=== PATIENT | male | born 1995 | race Two or more races ===

== ENCOUNTER 2020-06-22 03:38 | Emergency (ER) | payer MEDICAID, OTHER ==
[~2020-06-22] VITALS: Ht 188 cm; Wt 106.6 kg
--- NOTE | 2020-06-22 03:54 | NUR ---
PATIENT CAME TO THE ER BED 3 C/O LEFT SIDED ABDOMINAL PAIN RADIATING TO UPPER LEFT SHOULDER WORSENING 2xDAYS. PATIENT STATES THAT HE HAS HAD THIS PAIN CHRONICALLY, BUT UNABLE TO SEE DUE TO UNAVAILABLE INSURANCE. HE RECENTLY WAS ABLE TO OBTAIN INSURANCE AND WAS ABLE TO SEE A DOCTOR AND HAD AN ULTRASOUND ON FEBRUARY 2020 WHICH SHOWED HE HAD A LARGE SPLEEN. RECENTLY USED MARIJUANA AROUND 1000 OF YESTERDAY. PATIENT AAOX4. NO SOB. BREATHING EVENLY AND UNLABORED ON ROOM AIR. CONNECTED TO THE MONITOR. PATIENT PROVIDED URINE SAMPLE, SENT TO THE LAB.
[2020-06-22] MEDS: IV NS 0.9% 500 ML BAG IV ONE (04:00)
[2020-06-22] MEDS: ONDANSETRON HCL/PF 4 MG/2 ML VIAL IVP ONE (04:00)
[2020-06-22] MEDS ORDERED: ONDANSETRON HCL/PF 4 MG/2 ML VIAL ONE (04:05)
[2020-06-22 04:06] LABS: BILIRUBIN,URINE SMALL (NEGATIVE); COLOR,URINE YELLOW (YELLOW); LEUKOCYTE ESTERASE ,URINE Negative (NEGATIVE); NITRITE, URINE Negative (NEGATIVE); PH,URINE 6.5 (5.0-8.0); PROTEIN,URINE 30 mg/dl (NEGATIVE); UGLUCOSE Negative (NEGATIVE); UROBILINOGEN,URINE 0.2 EU/dL (0.2)
[2020-06-22 04:07] LABS: BASOPHILS % (AUTO) 0.5 % (0.0-2.0); EOSINOPHILS % (AUTO) 1.1 % (0.0-6.0); HEMATOCRIT 47 % (39-51); HEMOGLOBIN 15.8 g/dL (13.5-17.5); LYMPHOCYTES # (AUTO) 1.4 /CMM (0.8-4.8); LYMPHOCYTES % (AUTO) 22.4 % (20.0-44.0); MEAN CORPUSCULAR HGB CONC 34 g/dl (31.0-36.0); MEAN CORPUSCULAR VOLUME 88 fL (80-96); MONOCYTES # (AUTO) 0.8 /CMM (0.1-1.30); MONOCYTES % (AUTO) 12.5 % (2.0-12.0); NEUTROPHILS % (AUTO) 63.5 % (43.0-81.0); PLATELET COUNT (AUTO) 177 /CMM (150-450); WHITE BLOOD COUNT (AUTO) 6.4 K/uL (4.3-11.0)
[2020-06-22 04:14] LABS: CALCIUM, SERUM 9.4 mg/dL (8.5-10.1); POTASSIUM 3.7 mmol/L (3.5-5.1)
--- NOTE | 2020-06-22 04:15 | NUR ---
taken to ct
[2020-06-22 04:20] LABS: ALBUMIN 4.8 g/dL (3.4-5.0); BILIRUBIN,DIRECT 0.1 mg/dL (0.0-0.2); BILIRUBIN,TOTAL 0.3 mg/dL (0.2-1.0); TOTAL PROTEIN, SERUM 8.5 g/dL (6.4-8.2)
[2020-06-22 04:29] LABS: BACTERIA,URINE Few /HPF (None Seen); CALCIUM OXALATE CRYSTALS,UR Few /HPF (None Seen); RBC,URINE 0-2 /HPF (0-2); SQUAMOUS EPITHELIAL CELL,UR Few /HPF (None Seen)
[2020-06-22 04:30] LABS: MUCUS,URINE Many /LPF (None Seen)
--- NOTE | 2020-06-22 05:50 | NUR ---
Patient discharged to home in stable condition. Written and verbal after care instructions given. Patient verbalizes understanding of instruction.IV removed. Catheter intact and site benign. Pressure and 4x4 applied to site. No bleeding noted. Pt ambulatory with a steady gait
[2020-06-22 06:06] VITALS: BP 117/72
== END 2020-06-22 05:50 | disposition home or self-care (01) ==
LOC: ER 03:43
DX: R16.1 Splenomegaly, not elsewhere classified (principal); Z60.2 Problems related to living alone
CPT/HCPCS: 36415; 74176; 80048; 80076; 81001; 83690; 85025; 96374; 99284; J2405; J7040